=== PATIENT | female | born 1990 | race Caucasian/White ===

== ENCOUNTER 2017-07-07 23:47 | Emergency (ER) | payer OTHER ==
[~2017-07-07] VITALS: Ht 160 cm; Wt 112.5 kg
[2017-07-08 00:17] VITALS: Ht 160 cm; Wt 112.5 kg
[2017-07-08 01:56] VITALS: BP 143/95
== END 2017-07-08 01:56 | disposition home or self-care (01) ==
LOC: ED 23:47
DX: H60.91 Unspecified otitis externa, right ear (principal); H60.331 Swimmer's ear, right ear; J06.9 Acute upper respiratory infection, unspecified

== ENCOUNTER 2017-08-01 12:03 | Emergency (ER) | payer OTHER ==
[~2017-08-01] VITALS: Ht 157.5 cm; Wt 113.8 kg
[2017-08-01 12:24] VITALS: Ht 157.5 cm; Wt 113.8 kg
[2017-08-01 14:46] LABS: BASOPHIL % 0.5 % (0-2)
[2017-08-01 14:52] LABS: CALCIUM 8.8 mg/dL (8.5-10.1); CARBON DIOXIDE 27.8 mmol/L (21-32); CHLORIDE SERUM 104 mmol/L (98-107); CREATININE SERUM 0.7 mg/dL (0.6-1.0); GFR1 > 60 mL/min; GLUCOSE SERUM 89 mg/dL (74-106); POTASSIUM SERUM 3.8 mmol/L (3.5-5.1); SODIUM SERUM 139 mmol/L (136-145)
[2017-08-01 14:56] LABS: ALBUMIN 3.5 g/dL (3.4-5.0); ALKALINE PHOSPHATASE 78 U/L (46-116); ALT/SGPT 33 U/L (14-59); AST/SGOT 20 U/L (15-37); BILIRUBIN TOTAL 0.3 mg/dL (0.20-1.00); LIPASE 935 IU/L (73-393); PLATELET COUNT 425 x10^3mcL (130-400); RED CELL DISTRIBUTION WIDTH 14.6 % (11.5-14.5)
[2017-08-01 14:57] LABS: AMYLASE 179 U/L (25-115); TOTAL PROTEIN, SERUM 8.3 g/dL (6.4-8.2)
[2017-08-01 17:30] VITALS: BP 129/98
== END 2017-08-01 17:30 | disposition home or self-care (01) ==
LOC: ED 12:03
PROVIDERS: Emergency Medicine
DX: K85.90 Acute pancreatitis without necrosis or infection, unspecified (principal)
CPT/HCPCS: 36415; 83880; J1885; Q0092

== ENCOUNTER 2018-01-15 14:50 | Emergency (ER) | payer OTHER ==
[~2018-01-15] VITALS: Ht 160 cm; Wt 118.8 kg
[2018-01-15 15:03] VITALS: Ht 160 cm; Wt 118.8 kg
[2018-01-15 17:06] VITALS: BP 132/86
== END 2018-01-15 17:06 | disposition home or self-care (01) ==
LOC: ED 14:50
DX: S46.912A Strain of unspecified muscle, fascia and tendon at shoulder and upper arm level, left arm, initial encounter (principal); R03.0 Elevated blood-pressure reading, without diagnosis of hypertension; X50.9XXA Other and unspecified overexertion or strenuous movements or postures, initial encounter; Y93.89 Activity, other specified; Y92.89 Other specified places as the place of occurrence of the external cause; Y99.8 Other external cause status